=== PATIENT | female | born 1970 | race Two or more races ===

== ENCOUNTER 2023-09-08 18:39 | Emergency (ER) | payer MEDICAID ==
[~2023-09-08] VITALS: Ht 162.6 cm; Wt 90.9 kg
[2023-09-08 18:39] VITALS: TEMP 98.2
[2023-09-08] MEDS ORDERED: LISI-894 PO (18:44)
[2023-09-08] MEDS ORDERED: HYDR25TA2 PO (18:44)
[2023-09-08 19:57] LABS: HEMATOCRIT 37.7 % (36-46); HEMOGLOBIN 12.5 g/dL (12.0-16.0); MEAN CORPUSCULAR HEMOGLOBIN 27.7 pg (26.0-34.0); MEAN CORPUSCULAR HGB CONC 33.3 G/dL (31.0-37.0); MEAN CORPUSCULAR VOLUME 83 fL (80-100); PLATELET COUNT (AUTO) 286 K/uL (150-450); RED BLOOD CELL COUNT(AUTO) 4.52 MIL/uL (4.00-5.20); RED CELL DISTRIBUTION WIDTH 13.8 % (11.5-14.5); WHITE BLOOD COUNT (AUTO) 7.7 K/uL (4.5-11.0)
[2023-09-08 20:10] LABS: CALCIUM, TOTAL 9.2 mg/dL (8.8-10.5); CREATININE 1.39 mg/dL (0.60-1.30); POTASSIUM 3.5 mmol/L (3.5-5.1); PROTHROMBIN TIME 10.2 SEC (9.4-11.6)
[2023-09-08 20:14] LABS: TROPONIN I-HIGH SENSITIVITY 6 ng/L (<51)
[2023-09-08 20:27] LABS: BAND NEUTROPHILS % (MANUAL) 5 % (0-5); BASOPHILS % (MANUAL) 1 % (0-2); EOSINOPHILS % (MANUAL) 5 % (1-6); LYMPHOCYTES % (MANUAL) 20 % (22-44); MONOCYTES % (MANUAL) 6 % (2-9); RBC MORPHOLOGY COMMENT NORMAL RBC MORPH; SEGMENTED NEUTROPHILS % 63 % (40-70); TOTAL CELLS COUNTED 100
[2023-09-08 20:34] LABS: ALBUMIN 3.9 g/dL (3.4-5.0); BILIRUBIN,TOTAL 0.3 mg/dL (0.1-1.0); TOTAL PROTEIN, SERUM 7.8 g/dL (6.4-8.2)
[2023-09-08] MEDS: MECLIZINE HCL 25 MG TABLET PO ONE (21:32)
[2023-09-08] MEDS: LISINOPRIL 10 MG TABLET PO ONE (21:32)
[2023-09-08] MEDS: HYDROCHLOROTHIAZIDE 25 MG TABLET PO ONE (22:18)
[2023-09-08] MEDS: SODIUM CHLORIDE 0.9% 1,000 ML IV ONE (22:45)
[2023-09-08] MEDS: HydrALAZINE HCL 20 MG/ML VIAL IVP ONE (22:45)
[2023-09-09 00:27] VITALS: BP 134/76; PULSE 62; RESP 16
[2023-09-09] MEDS ORDERED: HYDR25TA2 PO (00:51)
[2023-09-09] MEDS ORDERED: LISI-894 PO (00:51)
== END 2023-09-09 01:04 | disposition home or self-care (01) ==
LOC: EMS 18:39
DX: I10 Essential (primary) hypertension (principal); R42 Dizziness and giddiness
CPT/HCPCS: 99285; 96374; 70450; 71045; 96361; 80053; 82550; 83880; 84484; 85025; 85610; 85730; 36415; 93005; J0360; J7030

== ENCOUNTER 2023-09-22 22:01 | Emergency (ER) | payer MEDICAID ==
[~2023-09-22] VITALS: Ht 162.6 cm; Wt 86.4 kg
[~2023-09-22 22:01] MED LIST: HYDR25TA2 PO; LISI-894 PO
[2023-09-22 22:15] VITALS: TEMP 98.2
[2023-09-22 23:05] LABS: BASOPHILS % (AUTO) 0.9 % (0.0-2.0); EOSINOPHILS % (AUTO) 9.4 % (1.0-6.0); HEMATOCRIT 37.2 % (36-46); HEMOGLOBIN 12.2 g/dL (12.0-16.0); LYMPHOCYTES # (AUTO) 3.8 K/uL (1.0-4.8); LYMPHOCYTES % (AUTO) 42.1 % (22.0-44.0); MEAN CORPUSCULAR HEMOGLOBIN 27.4 pg (26.0-34.0); MEAN CORPUSCULAR VOLUME 83 fL (80-100); MONOCYTES # (AUTO) 0.7 K/uL (0.1-1.0); MONOCYTES % (AUTO) 7.4 % (2.0-9.0); NEUTROPHILS # (AUTO) 3.6 K/uL (1.8-7.7); NEUTROPHILS % (AUTO) 40.2 % (40.0-70.0); PLATELET COUNT (AUTO) 266 K/uL (150-450); RED BLOOD CELL COUNT(AUTO) 4.47 MIL/uL (4.00-5.20); RED CELL DISTRIBUTION WIDTH 13.3 % (11.5-14.5)
[2023-09-22 23:22] LABS: TROPONIN I-HIGH SENSITIVITY 7 ng/L (<51)
[2023-09-22] MEDS: HydrALAZINE HCL 20 MG/ML VIAL IVP ONE (23:32)
[2023-09-22 23:39] LABS: ALBUMIN 3.9 g/dL (3.4-5.0); BILIRUBIN,TOTAL 0.3 mg/dL (0.1-1.0); TOTAL PROTEIN, SERUM 7.9 g/dL (6.4-8.2)
[2023-09-23] MEDS ORDERED: AMLO-257 PO (00:19)
[2023-09-23 00:21] VITALS: BP 128/75; PULSE 102; RESP 18
[2023-09-23] MEDS: LORazepam 2 MG/ML VIAL IVP ONE (00:34)
[2023-09-23] MEDS: POTASSIUM CHLORIDE 20 MEQ ER TABLET PO ONE (00:41)
== END 2023-09-23 02:25 | disposition home or self-care (01) ==
LOC: EMS 22:08
DX: I16.0 Hypertensive urgency (principal); I10 Essential (primary) hypertension
CPT/HCPCS: 99291; 96374; 80053; 82550; 83880; 84484; 85025; 36415; 71045; 93005; J0360; J2060